=== PATIENT | female | born 1995 | race African-American/Black ===

== ENCOUNTER 2020-11-10 08:19 | Outpatient (CLI) | payer OTHER, SELFPAY ==
--- NOTE | ~2020-11-10 | US_ITS ---
EXAMINATION: US carotid duplex BI DATE: 11/10/2020 09:52 INDICATION: Syncope and collapse TECHNIQUE: Grayscale, color Doppler, and pulsed Doppler images of the cervical carotid arteries were obtained. The degree of vessel stenosis is placed in one of the following categories: normal, <50%, 5 0-69%, >=70% but less than near-occlusion, near-occlusion, or total occlusion. Note that percent sten osis relative to normal distal artery lumen diameter is indirectly measured from velocity measurement s as described by Roshan, et al. Radiology 2003; [id number]:[id number]. COMPARISON: None. FINDINGS: RIGHT: The right common carotid artery (CCA) peak systolic velocity (PSV) is 92 cm/s. The right internal car otid artery (ICA) PSV is 92 cm/s. The right ICA end-diastolic velocity (EDV) is 24 cm/s. The right IC A/CCA PSV ratio is 1.0. Grayscale and color Doppler images of the straight no evident stenosis or faith que in the ICA. The external carotid artery (ECA) PSV is 74 cm/s. There is antegrade flow in the righ t vertebral artery. LEFT: The left CCA PSV is 98 cm/s. The left ICA PSV is 87 cm/s. The left ICA EDV is 40 cm/s. The left ICA/C CA PSV ratio is 0.9. Grayscale and color Doppler images demonstrate no evident stenosis or plaque in the ICA. The ECA PSV is 60 cm/s. There is antegrade flow in the left vertebral artery. There is a bu nny sign with midsystolic deceleration as well as no flow during late diastole. IMPRESSION: 1. No evident plaque or stenosis in the left or right internal iliac arteries. 2. Abnormal arterial waveform in the left vertebral artery with mixed systolic deceleration and absen t flow during diastole which could be seen in the setting of pre-subclavian steal phenomena with sten osis in the more proximal left subclavian artery. Could consider CT angiogram of the carotid arteries which includes the great vessels arising from the aortic arch for further evaluation. Reviewed, dictated and finalized at location A. IMPRESSION: 1. No evident plaque or stenosis in the left or right internal iliac arteries. 2. Abnormal arterial waveform in the left vertebral artery with mixed systolic deceleration and absent flow during diastole which could be seen in the setting of pre-subclavian steal phenomena with stenosis in the more proximal left subc lavian artery. Could consider CT angiogram of the carotid arteries which includ es the great vessels arising from the aortic arch for further evaluation.
--- NOTE | 2020-11-10 08:54 | ECHO_ITS ---
Patient Info Name: Caity Gamez Age: 25 years : 1995 Gender: Female Ht: 61 in Wt: 183 lbs BSA: 1.93 m2 HR: 75 bpm BP: 127 / 75 mmHg Technical Quality: Good Exam Date: 11/10/2020 9:04 AM Exam Location: [facility] Patient Status: Outpatient Admit Date: 11/10/2020 Staff Ordering Physician: Rivera Connolly MD Teacher Of [employer] Deaf/Hard Of Hearing: Medina Tarango RDCS Attending Provider: Rivera Connolly MD Exam Type: CA echo doppler color flow Study Info Indications - syncope and collaspe Complete two-dimensional, color flow and Doppler transthoracic echocardiogram is performed. Summary 1. Complete two-dimensional, color flow and Doppler transthoracic echocardiogram is performed. 2. Left ventricular chamber dimension is normal. 3. Left ventricular systolic function is normal, estimated at 60-65%. 4. The left ventricular diastolic function is normal. 5. E/e' 8 is minimally elevated. Left Ventricle E/e' 8 is minimally elevated. Left ventricular chamber dimension is normal. Left ventricular systolic function is normal, estimated at 60-65%. The left ventricular diastolic function is normal. Right Ventricle Right ventricular chamber dimension is normal. Right ventricular systolic function is normal. Left Atria Left atrial chamber dimension is normal. Right Atria Right atrial chamber dimension is normal. Aortic Valve The aortic valve is trileaflet. There is no aortic valve stenosis. There is no aortic valve regurgitation. Pulmonic Valve There is no pulmonic regurgitation. Mitral Valve There is no mitral valve stenosis. There is no mitral valve regurgitation. Tricuspid Valve There is no tricuspid valve regurgitation. Pericardium/Pleural There is no pericardial effusion. Inferior Vena Cava Normal inferior vena cava with >50% collapse upon inspiration consistent with normal right atrial pressure, 5 mmHg. Aorta The aortic root size at the sinus of Valsalva is normal. Left Ventricular Outflow Tract Name Value Normal LVOT 2D LVOT Diameter 2.0 cm LVOT Doppler LVOT Peak Gradient 6 mmHg LVOT Mean Gradient 3 mmHg LVOT VTI 26 cm LVOT VTI/AV VTI Ratio 0.9 LVOT Stroke Volume 80 ml LVOT CO 14.2 l/min LVOT CI 7.3 l/min/m2 Pulmonic Valve Name Value Normal PV Doppler PV Peak Gradient 3 mmHg Mitral Valve Name Value Normal MV Doppler MV Decel Potter
== END 2020-11-10 08:20 | disposition home or self-care (01) ==
PROVIDERS: PCP Internal Medicine; Visit Provider Psychiatry & Neurology Neurology
DX: R55 Syncope and collapse (principal)
CPT/HCPCS: 93306; 93880

== ENCOUNTER 2022-02-06 10:29 | Outpatient (CLI) | payer OTHER, SELFPAY ==
--- NOTE | ~2022-02-06 | CT_ITS ---
EXAMINATION: CTA brain carotid DATE: 02/06/2022 11:47 INDICATION: Syncope. TECHNIQUE: Computed tomographic angiography (CTA) of the head was performed without and with 100 mL O mnipaque-[id number] intravenous contrast. CTA of the neck was performed with intravenous contrast. Automated exposure control and iterative reconstruction technique were employed. The dose-length product was 1 700.62 mGy-cm. Maximum intensity projection and volume rendered 3D-reconstructions were created by niles jin technologist on a separate workstation. COMPARISON: Ultrasound 11/10/2020 FINDINGS: HEAD CTA: There is no intracranial hemorrhage, acute infarction, or abnormal intracranial mass lesion . The ventricles are normal in size. The ventricles are normal in size. The paranasal sinuses are sara ar. The orbits are normal. The mastoid air cells are normal. The vertebral arteries are codominant. T here is no significant stenosis of basilar artery or the posterior cerebral arteries. The posterior c ommunicating arteries are normal. There is no significant stenosis of the intracranial internal carot id arteries or anterior or middle cerebral arteries. Anterior communicating artery is normal. There i s no aneurysm. NECK CTA: There are no pathologically enlarged lymph nodes. There is no visible plaque in the vertebr al arteries. There is no visible plaque in the proximal internal carotid arteries. There is 0% stenos is of the proximal right internal carotid artery relative to normal distal artery lumen diameter (GAYE CET criteria). There is 0% stenosis of the proximal left internal carotid artery relative to normal d istal artery lumen diameter. There is kyphosis of cervical spine. IMPRESSION: 1. Normal brain. No aneurysm or significant intracranial arterial stenosis. 2. 0% stenosis of the proximal internal carotid arteries relative to normal distal artery lumen diame ters (NASCET criteria). Reviewed, dictated and finalized at location B. IMPRESSION: 1. Normal brain. No aneurysm or significant intracranial arterial stenosis. 2. 0% stenosis of the proximal internal carotid arteries relative to normal dis aureliano artery lumen diameters (NASCET criteria).
== END 2022-02-06 10:30 | disposition home or self-care (01) ==
PROVIDERS: PCP Internal Medicine; Visit Provider Psychiatry & Neurology Neurology
DX: R55 Syncope and collapse (principal)
CPT/HCPCS: 70496; 70498; Q9967